=== PATIENT | female | born 1995 | race Caucasian/White ===

== ENCOUNTER → 2017-12-23 16:39 | Outpatient (CLI) | payer OTHER, SELFPAY ==
[2017-12-23 18:59] LABS: Chlamydia Trachomatis by PCR Negative (Negative); Neisserai gonorrhoeae by PCR Negative (Negative); Probe Check PASS; Sample Adequacy Control PASS; Specimen Processing Control PASS
[2017-12-26 15:50] LABS: HPV Reflexed? NOT INDICATED
== END ==
PROVIDERS: Family Provider Family Medicine; PCP Family Medicine; Referring Provider Nurse Practitioner Women's Health; Visit Provider Nurse Practitioner Women's Health
DX: Z12.4 Encounter for screening for malignant neoplasm of cervix (principal); A64 Unspecified sexually transmitted disease
CPT/HCPCS: 87491; 87591; 88175; G0145

== ENCOUNTER → 2018-02-09 12:18 | Outpatient (CLI) | payer OTHER, SELFPAY ==
--- NOTE | 2018-02-09 12:20 | US_ITS ---
STUDY: THYROID ULTRASOUND REASON FOR EXAM: Female, 22 years old. Palpable lump right neck. History of thyroidectomy 2007. TECHNIQUE: Ultrasound evaluation of the thyroid was performed with real-time and static lowe-scale imaging. COMPARISON: None. FINDINGS: RIGHT LOBE: The right lobe of the thyroid gland is surgically absent LEFT LOBE: The left lobe of the thyroid gland measures 3.9 x 1.4 x 1.3 cm. There is a homogeneous echotexture. An incompletely defined, heterogeneous 1.1 x 0.9 x 0.9 cm solid nodule is seen in the mid lobe. An exophytic 4 x 3 x 2 mm nearly isoechoic nodule is noted in the anterior mid to lower lobe. ISTHMUS: The isthmus measures 2 mm. At the area of the palpable abnormality, there is a well-defined 2.25 x 1.1 x 2.3 cm hypoechoic structure that likely represents a lymph node. A similar appearing 2.5 x 3.1 x 0.9 cm hypoechoic structure consistent with a lymph node seen superior to the left lobe, as is a mildly heterogeneous 9 x 7 x 6 mm nodule. US/Head/Neck Soft Tissue IMPRESSION: 1. Prior right thyroidectomy. The palpable abnormality correlates to a 2.3 cm lymph node in the right neck. 2. Two left thyroid nodules are present, the larger measuring 1.1 cm. Correlation with any previous outside studies would be useful. If none are available, this may be amenable to ultrasound-guided needle biopsy. 3. Two lymph nodes are also seen in the left neck superior to the thyroid. The larger is 3.1 cm in greatest diameter. Electronically Signed: Nilo Zamora MD at 15:51 EST , Service support ,
[2018-02-09 16:04] LABS: Absolute Lymphocyte Count 3.43 X10^3/ul (0.83-4.51); Absolute Neutrophil Count 6.2 X10^3/uL (2.0-7.7); Basophil# 0.01 X10^3/uL; Basophil% 0.1 % (0-1); Eosinophil# 0.22 X10^3/uL; Eosinophils% 2.1 % (0-5); Hematocrit 41.9 % (37-47); Hemoglobin 13.5 g/dl (12.0-15.0); Lymphocyte # 3.43 X10^3/ul (4.0); Lymphocyte % 33.1 % (19-41); Mean Corp Hgb Conc 32.2 g/gl (32-36); Mean Corpuscular Hgb 28.1 pg (27.0-32.0); Mean Corpuscular Volume 87.1 fL (81-99); Monocyte# 0.51 X10^3/uL; Monocyte% 4.9 % (0-10); Neutrophil # 6.16 X10^3/uL (2.7-7.7); Neutrophil % 59.6 % (47-70); Platelet Count 282 K/mm3 (150-450); RBC Distribution Width CV 13.4 % (11.6-14.6); RBC Distribution Width SD 42.6 fl (35.1-43.9); Red Blood Count 4.81 M/mm3 (4.2-5.4); White Blood Count 10.4 K/mm3 (4.4-11.0)
[2018-02-09 16:08] LABS: POSITIVE COUNT NO; POSITIVE DIFFERENTIAL NO; POSITIVE MORPHOLOGY NO
[2018-02-12 08:42] LABS: EBV Acute VCA IgM < 36.0 U/mL (0.0-35.9); EBV Nuclear Antigen IgG 45.6 U/mL (0.0-17.9); EBV-VCA IgG > 600.0 U/mL (0.0-17.9)
--- OUTSIDE RECORDS SUMMARY | 2018-04-04 18:38 | XMS RPT_ITS ---
:1995 Author Organization OHIP Care Team Providers Name Role Phone Erica Tucker Attending Unavailable Malys, Erica Primary Care Unavailable Laura, Cheryl Attending Unavailable Malys, Erica Referring Unavailable Houston, Cheryl Attending Unavailable Laura, Cheryl Referring Unavailable Malys, Erica Primary Care Unavailable Malys, Erica Attending Unavailable Malys, Erica Primary Care Unavailable Oscar, Bradley Attending Unavailable Oscar, Bradlye Referring Unavailable Malys, Erica Primary Care Unavailable Oscar, Bradley Attending Unavailable Malys, Erica Primary Care Unavailable Oscar, Bradley Attending Unavailable Oscra, Bradley Referring Unavailable Malys, Erica Primary Care Unavailable PROBLEMS PROBLEMS DATE TYPE CONDITION / CODE ATTENDING STATUS SOURCE 02/23/2018 Unknown R59.0 - Localized Oscar, Bradley Active [place] enlarged lymph Community nodes / Hospital R59.0(ICD-10) Repository 02/09/2018 Unknown R22.1 - Localized Oscar, Bradley Active [place] swelling, mass Community and lump, neck / Hospital R22.1(ICD-10) Repository 12/23/2017 Unknown Z12.4 - Encounter Laura, Cheryl Active [place] for screening for [facility] malignant Hospital neoplasm of Repository cervix / Z12.4(ICD-10) 12/23/2017 Unknown A64 - Unspecified Laura, Cheryl Active [place] sexually [facility] transmitted Hospital disease / Repository A64(ICD-10) 06/03/2017 Unknown N93.9 - Abnormal Malys, Erica Active [place] uterine and Community vaginal bleeding, Hospital unspecified / Repository N93.9(ICD-10) 06/03/2017 Unknown E03.9 - Malys, Erica Active [place] Hypothyroidism, Community unspecified / Hospital E03.9(ICD-10) Repository PROCEDURES PROCEDURES No Procedure Records FoundRESULTS RESULTS OPERATIVE REPORT Observed: 02/20/2018 Status: F Source: [place] 3:23 PM [facility] REPOSITORY [facility] Medical Records Department [address] [address] Operative Report 02/20/18 1321 MR#: [id number] Acct: [id number] Name: JOE OSBORNE Rep #: [id number] : 1995 22 From: Bradley Oscar MD PCP: Erica Tucker DO Status: REG SDC Y Location: [place] [id number] Problem List (1) Localized enlarged lymph nodes Status: Chronic Report of Operation Date of Procedure: 02/20/18 Pre-Operative Diagnosis: Cervical lymphadenopathy Post-Operative Diagnosis: same Surgery/Procedure Performed:: Deep cervical lymph node biopsy, right neck Description of Surgical Findings:: Brittany is a 22-year-old female since valuation of persistent tender cervical lymphadenopathy this is predominantly on the right side, and ultrasound did show 3 cm lymph node on that side as well as some contralateral enlarged lymph nodes. She reports a distant history of thyroidectomy for a cystic lesion but history is otherwise not suggestive of significant illness or malignancy. She reports that the lymphadenopathy had been bothersome episodically over the last 6 years and given the significant palpable enlargement, tenderness, and pathologic size open biopsy for definitive evaluation was offered but she was eager to proceed. The risks, alternatives, potential benefits, and complications were discussed at length and any questions answered to the patient and/or caregiver's satisfaction. Witnessed informed consent was obtained in the office, and the patient and/or caregiver was agreeable to proceed. Procedure went as follows: The patient was identified in the preoperative holding brought to the operating room she was placed under general anesthesia intubated. When appropriate anesthesia was obtained, the left neck was then injected with 1% lidocaine with 100,000 epinephrine for a total of 2 cc of the planned incision site and prepped and draped in usual sterile fashion. After lying for vasoconstriction, a 15 blade scalpel was then used to incise the skin subcutaneous tissues and platysma. Dissection was then carried out over the sternocleidomastoid muscle anteriorly where the jugulodigastric node was identified. This was firm and bulky approximately 2 x 3 x 1.5 cm in size. This was then dissected free from its capsule and the vascular pedicle clamped and ligated with a 3-0 silk suture. This was then sent fresh for pathologic specimen. The wound was then irrigated with saline solution and no significant bleeding was encountered. Using interrupted 3- 0 Vicryl sutures the deep tissues were then reapproximated to close the space followed by reapproximation of the platysma and subcutaneous tissues. A 5-0 Monocryl was used to close the skin running subcuticular stitch followed by Cavilon and Steri-Strips. This completed the procedure and the patient was returned to anesthesia where she was vital to next made without comp occasion having tolerated the procedure well. Type of Anesthesia:: General - 99 Anesthesiologist: Adolfo Berg Special Medications: none Specimen's removed: Right deep cervical lymph node Drains: none Estimated Blood Loss (mL): 5 mL Fluids Replaced: 800 mL Grafts/Implants Used: none - Complications none - Admit VTE Documentation VTE Present on Admission: No VTE Mechan Device Prophylaxis: SCD's VTE Pharm Prophylaxis ordered?: No 02/20/181326 <Electronically signed by Bradley Oscar MD> Date Bradley Oscar MD CC: Bradley Oscar MD; Erica Tucker DO Signed DISCHARGE INSTRUCTION Observed: 02/20/2018 Status: F Source: [place] 1:28 PM [facility] [place] [place] REPOSITORY [facility] Medical Records Department [address] [place] [address] Instructions for Home/Discharge Instructions 02/20/181326 MR#: [id number] Acct: [id number] Name: JOE OSBORNE Bello Rep #: [id number] : 1995 22 From: Bradley Oscar MD PCP: Erica Tucker DO Status: REG SDC - Discharge Diagnoses Current Active Problems: Current Active and Chronic Problems (Last Reviewed 12/23/17 @ 14:19 by Lora Leo) Localized enlarged lymph nodes (Chronic) You will use the following diet at home:: Regular Your food should be the consistency of: Regular Discharge Activity: Return to Normal Activity, May not drive while taking narcotic pain medications. Call your doctor if your incision/area has: Continuous Slow Oozing, Increased Pain/ Swelling, Increased Redness, Foul Smelling Discharge Call your doctor if you observe: Fever of 101 or Higher, Uncontrolled pain Allergies/Adverse Reactions: Allergies No Known Allergies Allergy (Verified 02/19/18 09:38) Medications to take at Discharge duloxetine 60 mg capsule,delayed release See Rx Instructions PO DAILY 12/23/17 levonorgestrel 0.15 mg-ethinyl estradiol 0.03 mg tablet 1 tab PO DAILY #84 tab 12/23/17 Levothyroxine [Synthroid] 88 mcg PO DAILY 12/13/18 Primary Care Physician: Erica Tucker DO [Primary Care Provider] - Test Results: Test results from this visit will be discussed in further detail at your follow-up appointment, if applicable. Please Follow Up With: Bradley Oscar MD When: 2 weeks 02/20/18 1328 <Electronically signed by Bradley Oscar MD> Date Bradley Oscar MD CC: Erica Tucker DO ,URINE Collected: 02/20/2018 Status: F Source: [place] 11:39 AM [facility] [place] [place] REPOSITORY Order Comment: Reason for Laboratory Test PRE-OP TYPE CODE TESTS RESULT OUT OF REFERENCE UNITS RANGE LAB L400.8000 Negative Normal HCGUQUAL Negative Result Comment: Very dilute urine specimens, as indicated by a low specific gravity, may not contain customer service representative levels of hCG. If is still suspected, a first morning urine specimen should be collected 48 hours later and tested. Performed By: #### L400.7600 #### [facility] [address] [place], [address] LYMPH NODE BIOPSY Observed: 02/20/2018 Status: F Source: [place] 12:00 AM [facility] [place] [place] REPOSITORY Patient: JOE OSBORNE : 1995 () Acct Num: [id number] Phys: Bradley Oscar MD Unit Num: [id number] Loc: [facility] Specimen: [id number] Received: 02/20/18 - 1435 Spec Type: LYMPH NODE TISSUES 1 TISSUES: LYMPH NODE BIOPSY COMMENT The specimen is evaluated at the time of touch imprints by Dr. Glass. Immediate Evaluation = Numerous lymphocytes are noted, mixture of large and small lymphocytes including a few giant cells. Case has been reviewed in consultation with Dr. Quintana who concurs with the above diagnosis. IDC:AM GROSS DESCRIPTION Received fresh in saline labeled with the patient's name is a specimen designated right cervical lymph node. The specimen consists of an ovoid piece of amaro soft tissue consistent with lymph node measuring 2.5 x 1.5 x 1.5 cm. The specimen is sectioned and a section is submitted for flow cytometry study. Four touch imprints are prepared, two stained with Diff-Quik and two stained with H AND E stain. The entire specimen is submitted in two cassettes. / ANSLEY:nava 02/20/18 TC: CPT: 20417 HEADER OPERATION: Excisional biopsy, lymph node, open, deep cervical nodes PRE-OP DIAGNOSIS: Cervical lymphadenopathy TISSUE SUBMITTED: Right cervical lymph node sent fresh in saline MICROSCOPIC DESCRIPTION Slides are reviewed. MICROSCOPIC DIAGNOSIS Right cervical lymph node, excisional biopsy: Lymph node tissue with reactive lymphoid hyperplasia. Negative for malignancy. Flow cytometry study from [facility] shows no phenotypic evidence of non-Hodgkin lymphoma. The complete report is viewable in patient's EMR. ANSLEY:nava 02/24/18 Signed James Glass MD 02/24/18 <signature on file> Performed By: #### PLYMN #### [facility] [place], [address] CBC W/DIFF, AUTOMATED Collected: 02/09/2018 Status: F Source: [place] 1:13 PM [facility] [place] [place] REPOSITORY TYPE CODE TESTS RESULT OUT OF RANGE REFERENCE UNITS LAB L100.1000 4.4-11.0 K/mm3 Normal WBC 10.4 LAB L100.1200 4.2-5.4 M/mm3 Normal RBC 4.81 LAB L100.1300 12.0-15.0 g/dl Normal HGB 13.5 LAB L100.1400 37-47 % Normal HCT 41.9 LAB L100.1500 81-99 fL Normal MCV 87.1 LAB L100.1600 27.0-32.0 pg Normal MCH 28.1 LAB L100.1700 32-36 g/gl Normal MCHC 32.2 LAB L100.1810 11.6-14.6 % Normal RDW CV 13.4 LAB L100.1820 35.1-43.9 fl Normal RDW SD 42.6 LAB L100.1900 150-450 K/mm3 Normal PLT 282 LAB L100.2000 6.2-12.0 fl Normal MPV 10.0 LAB L100.2100 47-70 % Normal NEUT% 59.6 LAB L100.2200 19-41 % Normal LY% 33.1 LAB L100.2300 0-10 % Normal MONO% 4.9 LAB L100.2400 0-5 % Normal EO% 2.1 LAB L100.2500 0-1 % Normal BASO% 0.1 LAB L100.2550 0.0-0.9 % Normal IM GRAN % 0.200 Result Comment: IG% - Immature Granulocytes (promyelocytes, myelocytes and metamyelocytes) > 1% indicates that a LEFT SHIFT is Present. LAB L100.2620 2.0-7.7 X10 3/uL Normal Absolute Neut 6.2 LAB L100.2720 0.83-4.51 X10 3/ul Normal Absolute Lymph 3.43 Performed By: #### L100.0100 #### [facility] [address] [place], [address] EBV ACUTE PROF IGG Collected: 02/09/2018 Status: F Source: [place] / IGM 1:13 PM [facility] [place] [place] REPOSITORY TYPE CODE TESTS RESULT OUT OF RANGE REFERENCE UNITS LAB L3100.5900 0.0-35.9 U/mL Normal EB-VCA < 36.0 [id number] Result Comment: Negative <36.0 Equivocal 36.0 - 43.9 Positive >43.9 LAB L3100.6000 0.0-8.9 U/mL High EB-EA IgG 126.0 52869 Result Comment: Hepatitis A, Hepatitis C and HIV antibodies may cross-react with this assay. Negative < 9.0 Equivocal 9.0 - 10.9 Positive >10.9 LAB L3100.6100 0.0-17.9 U/mL High EB-VCA > [id number] 600.0 Result Comment: Negative <18.0 Equivocal 18.0 - 21.9 Positive >21.9 LAB L3100.6200 0.0-17.9 U/mL High EB-NAg [id number] 45.6 Result Comment: Negative <18.0 Equivocal 18.0 - 21.9 Positive >21.9 LAB L3100.6300 . INTERPRETATION Normal Comment Result Comment: EBV Interpretation Chart Interpretation EBV-IgM EA(D)-IgG VCA-IgG EBNA-IgG EBV Seronegative - - - - Early Phase + - - - Acute Primary + +or- + - Infection Convalescence/Past - +or- + + Infection Reactivated +or- + + + Infection + Antibody Present - Antibody Absent Performed at: - [facility] [address] [id number] Soils Engineer: Shane Barcenas PhD, Phone: [phone] Performed By: #### L3100.5850 #### [facility] (refer to report for specific site) refer to report for address and phone number HEAD/NECK SOFT TISSUE Observed: 02/09/2018 Status: F Source: [place] 12:20 PM [facility] [place] [place] REPOSITORY [facility] Imaging Services [address] [place] [address] Head/Neck Soft Tissue MR#: [id number] Acct: [id number] Name: JOE OSBORNE Rep #: [id number] : 1995 F 22 From: Usman Zamora MD PCP: Erica Tucker DO Status: REG CLI Study: Head/Neck Soft Tissue Date of Exam: 02/09/18 Exam# [id number] Ordering Dr: Bradley Oscar MD STUDY: THYROID ULTRASOUND REASON FOR EXAM: Female, 22 years old. Palpable lump right neck. History of thyroidectomy 2007. TECHNIQUE: Ultrasound evaluation of the thyroid was performed with real-time and static lowe-scale imaging. COMPARISON: None. FINDINGS: RIGHT LOBE: The right lobe of the thyroid gland is surgically absent LEFT LOBE: The left lobe of the thyroid gland measures 3.9 x 1.4 x 1.3 cm. There is a homogeneous echotexture. An incompletely defined, heterogeneous 1.1 x 0.9 x 0.9 cm solid nodule is seen in the mid lobe. An exophytic 4 x 3 x 2 mm nearly isoechoic nodule is noted in the anterior mid to lower lobe. ISTHMUS: The isthmus measures 2 mm. At the area of the palpable abnormality, there is a well-defined 2.25 x 1.1 x 2.3 cm hypoechoic structure that likely represents a lymph node. A similar appearing 2.5 x 3.1 x 0.9 cm hypoechoic structure consistent with a lymph node seen superior to the left lobe, as is a mildly heterogeneous 9 x 7 x 6 mm nodule. US/Head/Neck Soft Tissue IMPRESSION: 1. Prior right thyroidectomy. The palpable abnormality correlates to a 2.3 cm lymph node in the right neck. 2. Two left thyroid nodules are present, the larger measuring 1.1 cm. Correlation with any previous outside studies would be useful. If none are available, this may be amenable to ultrasound-guided needle biopsy. 3. Two lymph nodes are also seen in the left neck superior to the thyroid. The larger is 3.1 cm in greatest diameter. Electronically Signed: Nilo Zamora MD at 15:51 EST , Service support , CC: Bradley Oscar MD; Erica Tucker DO Database Architect: Signed CT/NG [facility] BY PCR Collected: 12/23/2017 Status: F Source: [place] 4:52 PM [facility] [place] [place] REPOSITORY TYPE CODE TESTS RESULT OUT OF RANGE REFERENCE UNITS LAB L8200.2100 Negative Normal Chlam Negative Trac PCR LAB L8200.2200 Negative Normal NG by Negative PCR Performed By: #### L8200.2000 #### [facility] [address] [place], [address] MANUFACTURING SUPPORT ENGINEER OFFICE VISIT Observed: 12/23/2017 Status: F Source: [place] REPORT 3:12 PM [facility] [place] [place] REPOSITORY [facility] 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 states she has been having stabbing pain in her abdomen above her belly button periodically. She doesn't recall anything specific that triggers the pain. 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 OCPs from PCP. States she notices more depression when on active pills. Last PAP: none Same sexual partner X 4 years. Agrees to GCC test, declines serum STD testing. Female Reproductive History Last Menstral Period: 12/04/17 Cycle Length: 21-35 Control Method: OCP Questions: Metorrhagia: No, Sexually active: Yes, Dyspareunia: No, PCB: No ROS Const Constitutional: Denies fatigue, weight gain or weight loss Cardio Card: Denies chest pain Resp Resp: Denies cough or shortness of breath with activity GI GI: Denies abdominal pain, constipation, change in stools, vomiting or bloating : Reports as per HPI; denies urinary frequency, pelvic pain, urinary urgency, vaginal discharge, vaginal itching, urinary incontinence or difficulty urinating Exam Const General: cooperative, healthy appearing, no acute distress, well developed Orientation: alert, oriented to person, oriented to place [facility] Head: normal to inspection Neck Neck: normal visual inspection Thyroid: thyroid normal Lymphatic: no lymphadenopathy noted Chest Breast inspection: normal inspection of the breasts, normal inspection of the axillae Breast palpation: normal palpation of the breasts, normal palpation of the axillae, no axillary lymphadenopathy Resp Effort AND Inspection: normal respiratory effort GI Palpation: soft, nontender, no masses Rectal Exam: deferred External Female Exam: normal external appearance, normal appearance of the urethra Urethra: normal appearance of the urethra, normal palpation Speculum Exam - Vagina: normal appearance of the vagina, normal vaginal discharge Speculum Exam - Cervix: cervix absent Bimanual Exam- Vagina AND Uterus: normal bimanual exam, uterus absent Bimanual Exam- Adnexa, other: normal adnexae, no adnexal masses, adnexae non-tender, pelvic support normal Pelvic Support: normal Neuro General: alert, oriented x3 Psych Affect: normal affect Assessment AND Plan Problems 1. Encounter for gynecological examination without abnormal finding Z01.419 2. Oral contraceptive pill surveillance Z30.41 3. Pap smear for cervical cancer screening Z12.4 4. Screen for STD (sexually transmitted disease) Z11.3 Plan Completed breast and pelvic exam Reviewed diet and exercise Pap thin prep pap with reflex HPV Contraception Rx for change to levora next cycle. 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 SERVICER Orders Orders: Medications New: Discontinued: desogestrel-ethinyl estradiol 0.15-0.03 mg (Enskyce) Discontinued Reaso1 tab PO DAILY n: Order Changed Coding Level of Care Code Off vis,new,prev 18-39yrs Diagnoses Encounter for gynecological examination without abnormal finding Z01.419 Gynecological examination findings: abnormal findings ABSENT Oral contraceptive pill surveillance Z30.41 Pap smear for cervical cancer screening Z12.4 Screen for STD (sexually transmitted disease) Z11.3 12/23/17 1512 <Electronically signed by Cheryl Sanchez CUSTOMER SUPPORT MANAGER-C> Date Cheryl Sanchez CUSTOMER SUPPORT MANAGER-C Cosigner Signature: Date (if applicable) CC: PAP I-G W/RFX Collected: 12/23/2017 Status: F Source: [place] HRHPV-APTIMA 3:00 PM [facility] [place] [place] REPOSITORY Order Comment: CYTOLOGY INFORMATION: - CLINICAL INFORMATION: - DATE LMP/MENOPAUSE: - COLLECTION VIAL: Thin Prep Vial - ARCHITECTURE INTERNSHIP SOURCE: CERVICAL - COLLECTION TECHNIQUE: BRUSH/SPATULA Specimen Comment: [id number] Specimen Comment: Source.............Cervix Specimen Comment: No. of containers..01 ThinPrep Vial TYPE CODE TESTS RESULT OUT OF RANGE REFERENCE UNITS LAB L7400.0800 . Normal DIAGN Comment Result Comment: NEGATIVE FOR INTRAEPITHELIAL LESION AND MALIGNANCY. LAB L7400.0900 . Normal ADEQ Comment Result Comment: Satisfactory for evaluation. Endocervical and/or squamous metaplastic cells (endocervical component) are present. LAB L7400.1400 . Normal PERFORM Comment Result Comment: Amber Vargas, Conductor Sleeping Car (ASCP) LAB L7400.2575 . Normal TEST METHOD Comment Result Comment: This liquid based ThinPrep(R) pap test was screened with the use of an image guided system. LAB L7400.2600 . Normal . COMM LAB L7400.2700 . Normal PAPSMR Comment Result Comment: The Pap smear is a screening test designed to aid in the detection of premalignant and malignant conditions of the uterine cervix. It is not a diagnostic procedure and should not be used as the sole means of detecting cervical cancer. Both false-positive and false-negative reports do occur. LAB L7400.2800 . Normal HPV RFLX Comment Result Comment: The HPV DNA reflex criteria were not met with this specimen result therefore, no HPV testing was performed. Performed at: [address] [place] [id number] Soils Engineer: Judy Lagos MD, Phone: [phone] Performed By: #### L7400.0353 #### [facility] (refer to report for specific site) refer to report for address and phone number ALLERGIES ALLERGIES DATE TYPE / CODE NAME / CODE REACTION SEVERITY SOURCE 02/19/2018 Drug No Known Unknown [place] [facility] Allergy/4160 Allergies/F00 [facility] [address](SNOMED [id number](RXNOR Repository CT) M) ENCOUNTERS ENCOUNTERS ADMIT/DISCHARGE ACCOUNT ADMITTING ENCOUNTER LOCATION SOURCE NUMBER CLASS 02/20/2018/ [id number] Ambulatory [place] 8 4 [facility] ing:SDCRoom: Repository AC04 02/11/2018 [id number] Ambulatory [place] 8 [facility] ing:LAB.FUTUR Repository E 02/09/2018 [id number] Ambulatory [place] 5 [facility] ing:[place] Repository 01/26/2018 [id number] Ambulatory [place] 7 [facility] ing:LAB.FUTUR Repository E 12/23/2017 [id number] Ambulatory [place] 7 [facility] ing:LABSPEC Repository 12/23/2017/ [id number] Ambulatory BMSBuilding:B [place] 8 3 [place] Repository 06/02/2017 [id number] Ambulatory [place] 7 [facility] ing:LAB.FUTUR Repository E PAYERS PAYERS ENCOUNTER GUARANTOR PAYER SUBSCRIBER SOURCE 02/20/2018 JOE A Primary JOE A [place] [id number] Insurance:MEDICAL DYLONDOB: Community [address] [facility] [id number] Number: Repository [address]Ntr: ([phone] [id number] [phone] () Date:2018-02-11[address] [place] [phone]: 02/20/2018 Secondary NOT GIVENUNK [place] Insurance:SELF PAY [facility] Number: Effective Repository Date:2018-02-11 02/11/2018 JOE A Primary JOE A [place] [id number] Insurance:MEDICAL DYLONDOB: [facility] [id number] Number: Repository [address]Dnx: 330 [id number] [phone] (HP) Date:2018-02-11[address] [place] [phone]: 02/11/2018 Secondary NOT GIVENUNK [place] Insurance:SELF PAY [facility] Number: Effective Repository Date:2018-02-11 02/09/2018 JOE A Primary JOE A [place] [id number] Insurance:MEDICAL SCOTTDOB: [facility] [id number] Number: Repository [id number]: 330 [id number] [phone] (HP) Date:2018-01-20[address] [place] [phone]: 02/09/2018 Secondary NOT GIVENUNK [place] Insurance:SELF PAY [facility] Hospital Number: Effective Repository Date:2018-01-20 01/26/2018 JOE A Primary JOE A [place] [id number] Insurance:MEDICAL SCOTTDOB: [facility] [id number] Number: Repository [address]Hmu: 330 [id number] [phone] (HP) Date:2018-01-26[address] [place] [phone]: 01/26/2018 Secondary NOT GIVENUNK [place] Insurance:SELF PAY [facility] Number: Effective Repository Date:2018-01-26 12/23/2017 JOE A Primary JOE A [place] [id number] Insurance:MEDICAL SCOTTDOB: [facility] [id number] Number: Repository [address]Gwz: 330 [id number] [phone] (HP) Date:2017-12-23[address] [place] [phone]: 12/23/2017 Secondary NOT GIVENUNK [place] Insurance:SELF PAY [facility] Number: Effective Repository Date:2017-12-23 12/23/2017 JOE Monsalve Primary JOE Monsalve [place] [id number] Insurance:MEDICAL SCOTTDOB: [facility] [id number] Number: Repository [id number]: 330 [id number] [phone] () Date:2017-12-15[address] [place] [phone]: 12/23/2017 Secondary NOT GIVENUNK [place] Insurance:SELF PAY [facility] Number: Effective Repository Date:2017-12-23 06/02/2017 JOE Monsalve Primary JOE Monsalve [place] [id number] Insurance:MEDICAL SCOTTDOB: [facility] [id number] Number: Repository [id number]: 330 [id number] [phone] () Date:2017-06-02[address] [place] [phone]: 06/02/2017 Secondary NOT GIVENUNK [place] Insurance:SELF PAY [facility] Number: Effective Repository Date:2017-06-02
== END ==
PROVIDERS: Family Provider Family Medicine; PCP Family Medicine; Referring Provider Otolaryngology; Visit Provider Otolaryngology
DX: R22.1 Localized swelling, mass and lump, neck (principal); J02.9 Acute pharyngitis, unspecified
CPT/HCPCS: 36415; 76536; 85025; 86663; 86664; 86665

== ENCOUNTER 2018-02-20 11:27 | Day surgery (SDC) | payer OTHER, SELFPAY ==
--- NOTE | 2018-02-20 | LYMN_PTH ---
PATIENT: JOE OSBORNE LOC: [facility] [place] U#:[id number] AGE/SX: 22/F ROOM: RE02/20/[address]: Dr. Bradley Oscar MD : 1995 BED: DIS: 02/20/2018 SPEC #: [id number] RECD: 02/20/18 14:35 STATUS: SCARLETT JACKY #: [id number] JOSELINE: 02/20/18 00:[address]: Bradley Oscar DEPT: SURGICAL PATHOLOGY RECD BY: Aditya Almodovar ENTERED: 02/20/18 14:36 SP TYPE: LYMPH NODE OTHR DR: Dr. Erica Tucker, DO Tissues: LYMPH NODE BIOPSY Procedures: Surgery Specimen Level IV HEADER OPERATION: Excisional biopsy, lymph node, open, deep cervical nodes PRE-OP DIAGNOSIS: Cervical lymphadenopathy TISSUE SUBMITTED: Right cervical lymph node sent fresh in saline MICROSCOPIC DIAGNOSIS Right cervical lymph node, excisional biopsy: Lymph node tissue with reactive lymphoid hyperplasia. Negative for malignancy. Flow cytometry study from [facility] shows no phenotypic evidence of non-Hodgkin lymphoma. The complete report is viewable in patient's EMR. ANSLEY:nava 02/24/18 COMMENT The specimen is evaluated at the time of touch imprints by Dr. Glass. Immediate Evaluation = Numerous lymphocytes are noted, mixture of large and small lymphocytes including a few giant cells. Case has been reviewed in consultation with Dr. Quintana who concurs with the above diagnosis. IDC:AM MICROSCOPIC DESCRIPTION Slides are reviewed. GROSS DESCRIPTION Received fresh in saline labeled with the patient's name is a specimen designated right cervical lymph node. The specimen consists of an ovoid piece of amaro soft tissue consistent with lymph node measuring 2.5 x 1.5 x 1.5 cm. The specimen is sectioned and a section is submitted for flow cytometry study. Four touch imprints are prepared, two stained with Diff-Quik and two stained with H & E stain. The entire specimen is submitted in two cassettes. / ANSLEY:nava 02/20/18 TC: CPT: 57811
[2018-02-20 11:47] LABS: Internal QC Validated? YES +Cl - CLEAR BKGD; Pregnancy, Urine Negative Negative
[2018-02-20 11:56] VITALS: BP 145/93; PULSE 91; RESP 16; TEMP 36.6; O2SAT 96; BMI 38.9
--- NOTE | 2018-02-20 13:21 | PCM.OPRPT ---
Problem List (1) Localized enlarged lymph nodes Status: Chronic Report of Operation Date of Procedure: 02/20/18 Pre-Operative Diagnosis: Cervical lymphadenopathy Post-Operative Diagnosis: same Surgery/Procedure Performed:: Deep cervical lymph node biopsy, right neck Description of Surgical Findings:: Brittany is a 22-year-old female since valuation of persistent tender cervical lymphadenopathy this is predominantly on the right side, and ultrasound did show 3 cm lymph node on that side as well as some contralateral enlarged lymph nodes. She reports a distant history of thyroidectomy for a cystic lesion but history is otherwise not suggestive of significant illness or malignancy. She reports that the lymphadenopathy had been bothersome episodically over the last 6 years and given the significant palpable enlargement, tenderness, and pathologic size open biopsy for definitive evaluation was offered but she was eager to proceed. The risks, alternatives, potential benefits, and complications were discussed at length and any questions answered to the patient and/or caregiver's satisfaction. Witnessed informed consent was obtained in the office, and the patient and/or caregiver was agreeable to proceed. Procedure went as follows: The patient was identified in the preoperative holding brought to the operating room she was placed under general anesthesia intubated. When appropriate anesthesia was obtained, the left neck was then injected with 1% lidocaine with 100,000 epinephrine for a total of 2 cc of the planned incision site and prepped and draped in usual sterile fashion. After lying for vasoconstriction, a 15 blade scalpel was then used to incise the skin subcutaneous tissues and platysma. Dissection was then carried out over the sternocleidomastoid muscle anteriorly where the jugulodigastric node was identified. This was firm and bulky approximately 2 x 3 x 1.5 cm in size. This was then dissected free from its capsule and the vascular pedicle clamped and ligated with a 3-0 silk suture. This was then sent fresh for pathologic specimen. The wound was then irrigated with saline solution and no significant bleeding was encountered. Using interrupted 3-0 Vicryl sutures the deep tissues were then reapproximated to close the space followed by reapproximation of the platysma and subcutaneous tissues. A 5-0 Monocryl was used to close the skin running subcuticular stitch followed by Cavilon and Steri-Strips. This completed the procedure and the patient was returned to anesthesia where she was vital to next made without comp occasion having tolerated the procedure well. Type of Anesthesia:: General - 99 Anesthesiologist: Adolfo Berg Special Medications: none Specimen's removed: Right deep cervical lymph node Drains: none Estimated Blood Loss (mL): 5 mL Fluids Replaced: 800 mL Grafts/Implants Used: none - Complications none - Admit VTE Documentation VTE Present on Admission: No VTE Mechan Device Prophylaxis: SCD's VTE Pharm Prophylaxis ordered?: No
[2018-02-20 13:27] VITALS: BP 145/93; BP 155/103; PULSE 90; RESP 16; TEMP 36.3; O2SAT 95
--- NOTE | 2018-02-20 13:28 | DCINST_ITS ---
- Discharge Diagnoses Current Active Problems: Current Active and Chronic Problems (Last Reviewed 12/23/17 @ 14:19 by Lora Leo) Localized enlarged lymph nodes (Chronic) You will use the following diet at home:: Regular Your food should be the consistency of: Regular Discharge Activity: Return to Normal Activity, May not drive while taking narcotic pain medications. Call your doctor if your incision/area has: Continuous Slow Oozing, Increased Pain/ Swelling, Increased Redness, Foul Smelling Discharge Call your doctor if you observe: Fever of 101 or Higher, Uncontrolled pain Allergies/Adverse Reactions: Allergies No Known Allergies Allergy (Verified 02/19/18 09:38) Medications to take at Discharge duloxetine 60 mg capsule,delayed release See Rx Instructions PO DAILY 12/23/17 levonorgestrel 0.15 mg-ethinyl estradiol 0.03 mg tablet 1 tab PO DAILY #84 tab 12/23/17 Levothyroxine [Synthroid] 88 mcg PO DAILY 02/19/18 Primary Care Physician: Erica Tucker DO [Primary Care Provider] - Test Results: Test results from this visit will be discussed in further detail at your follow- up appointment, if applicable. Please Follow Up With: Bradley Oscar MD When: 2 weeks
[2018-02-20 13:30] VITALS: BP 145/93; BP 152/100; PULSE 84; RESP 16; O2SAT 97
[2018-02-20 13:45] VITALS: BP 145/93; BP 146/97; PULSE 76; RESP 16; O2SAT 96
[2018-02-20 14:00] VITALS: BP 137/67; BP 145/93; PULSE 83; RESP 16; TEMP 36.3; O2SAT 98
[2018-02-20] MEDS: Acetaminophen 325 MG Tablet 650 MG PO (14:53)
[2018-02-20] MEDS: Ibuprofen 400 MG Tablet PO (16:00)
[2018-02-20 17:13] VITALS: BP 134/64; BP 145/93; PULSE 80; RESP 16; TEMP 36.3; O2SAT 98
--- NOTE | 2018-02-20 17:33 | PCM.DC.SUM ---
Discharge Date and Diagnosis Date of Admission: 02/20/18 Date of Discharge: 02/20/18 - Primary Discharge Diagnosis enlarged cervical lymph node - Secondary Discharge Diagnosis Chronic Problems (Last Reviewed 12/23/17 @ 14:19 by Lora Leo) Localized enlarged lymph nodes (Chronic) Hospital Course and Treatment Summary of Care Provided: The patient is a 22 year old F [] Subjective: Patient reports severe right neck pain after lymph node biopsy. This had been present the week preoperatively as well but is now worsened. She reports that Tylenol and Ibuprofen are not helping and that Dilaudid given only made her sleepy. Her mother states that pain medications don't work for us. Objective: Well appearing female standing at bedside in her street clothes, no bleeding or swelling at right neck incision site. - Physical Exam Vital Signs Temp Pulse Resp BP Pulse Ox 97.4 F L 80 16 134/64 H 98 02/20/18 17:13 02/20/18 17:13 02/20/18 17:13 02/20/18 17:13 02/20/18 17:13 Oxygen Delivery Method Room Air Weight: 103.1 kg Body Mass Index (BMI) 38.9 Intake and Output for Last 24 Hours 02/18/18 02/19/18 02/20/18 23:59 23:59 23:59 Intake Total 1100 / 1100 Balance 1100 / 1100 Laboratory Tests Past 24 Hrs 02/20/18 11:39 Urine Test Negative Discharge Activity: Return to Normal Activity, May not drive while taking narcotic pain medications. Call your doctor if your incision/area has: Continuous Slow Oozing, Increased Pain/ Swelling, Increased Redness, Foul Smelling Discharge Call your doctor if you observe: Fever of 101 or Higher, Uncontrolled pain Home Medications: Medications to take at Discharge duloxetine 60 mg capsule,delayed release See Rx Instructions PO DAILY 12/23/17 levonorgestrel 0.15 mg-ethinyl estradiol 0.03 mg tablet 1 tab PO DAILY #84 tab 12/23/17 Levothyroxine [Synthroid] 88 mcg PO DAILY 02/19/18 Acetaminophen [Tylenol Tablet] 650 mg PO Q4H PRN PRN tablet 02/20/18 Hydrocodone Bitart/Apap 5-325 [Pinson 5/325] 2 tab PO Q6H PRN PRN 5 Days #30 tab 12/14/18 Ibuprofen [Motrin] 400 mg PO Q6 tablet 02/20/18 Following Prescrptions Were Given to Patient: Hydrocodone Bitart/Apap 5-325 [Pinson 5/325] 2 tab PO Q6H PRN PRN 5 Days #30 tab PRN Reason: Severe Pain (-12/17) Primary Care Physician: Erica Tucker DO [Primary Care Provider] - Please Follow Up With: Bradley Oscar MD When: 2 weeks Additional Instructions: Patient and family are met at bedside in recovery. I discussed with her and her mother that in my experience, most patients do well with minor surgery pain with a combination of Tylenol and Ibuprofen. Her mother stated that these medications do not work and it is ridiculous that they have been here and not had her pain addressed. I asked if they had been given Dilaudid as I was informed by nursing, and she reported that this only made her sleepy and relaxed. I explained that the three avenues of pain management are Tylenol, NSAIDS, and narcotics and that I would be happy to offer her some Pinson or Percocet here to see if this would help with her pain. At this, she said there is no (explicative) point and that she was leaving. Her mother became threatening and argumentative, but I again, reiterated that she is being offered some additional pain medication that she may continue by prescription in the hopes of better pain relief. I offered her mother a smile in hopes of a supportive gesture, to which I was admonished for laughing, to which I reassured her that I was only trying to help her daughter and address her pain as reported. They did agree to take Pinson here and left with a 5 day supply of pain control. Disposition: Home Medical Necessity - Tobacco Use Smoking Status: Never smoker Meaningful Use Info Meaningful Use Diagnoses (Choose all that apply): None applicable
[2018-02-20] MEDS: HYDROcodone Bitartrate/Apap 5/325 Tablet PO (17:40)
--- NOTE | 2018-02-20 17:41 | SUR.PHASEII ---
1453 PT HAS C/O PAIN TYLENOL GIVEN ORDERED, PT STATES, THIS WILL NOT WORK, BUT WILLING TO TAKE. 1550 PT UPSET AND CRYING, STATES SHE IS IN PAIN, MOTHER VERY ANGRY, STATES THIS IS NOT RIGHT. DR LATHAM CALLED, WAS TOLD TO GIVE THE IBUPROFEN. PT STATES, THIS WILL NOT WORK. GAVE SCHEDULE DOSE ORDERED. DILAUDID ORDERED IN PACU, PT ONLY RECEIVED 0.5MG IV , AN ADDITIONAL 2 DOSES GIVEN PER ANESTHESIA. 1715 PT STATES JUST GET ME OUT HERE, USING HARSH LANGUAGE. PT ENCOURAGED TO STAY TO SPEAK WITH DR LATHAM. 1720 DR HICKS SPOKE WITH FAMILY , MOTHER VERY INAPPROPRIATE WITH HER LANGUAGE. PT USING HARSH LANGUAGE , WANTING TO LEAVE. DR LATHAM OFFERED NORCO, PT AND PT'S MOTHER REFUSED. PT ENCOURAGED TO TRY NORCO , PT ACCEPTED. 2 TABS OF NORCO GIVEN, SEE MAR. PRESCRIPTION PROVIDED PER DR LATHAM. PT ESCORTED OUT BY THIS NURSE.
--- OUTSIDE RECORDS SUMMARY | 2018-04-08 04:50 | XMS RPT_ITS ---
:1995 Author Organization OHIP Care Team Providers Name Role Phone Erica Tucker Attending Unavailable Malys, Erica Primary Care Unavailable [place], Cheryl Attending Unavailable Malys, Erica Referring Unavailable [place], Cheryl Attending Unavailable Laura, Cheryl Referring Unavailable Malys, Erica Primary Care Unavailable Malys, Erica Attending Unavailable Malys, Erica Primary Care Unavailable Oscar, Bradley Attending Unavailable Oscar, Bradley Referring Unavailable Malys, Erica Primary Care Unavailable Oscar, Bradley Attending Unavailable Malys, Erica Primary Care Unavailable Oscar, Bradley Attending Unavailable Oscar, Bradley Referring Unavailable Malys, Erica Primary Care Unavailable PROBLEMS PROBLEMS DATE TYPE CONDITION / CODE ATTENDING STATUS SOURCE 02/23/2018 Unknown R59.0 - Localized Oscar, Bradley Active [place] enlarged lymph Community nodes / Hospital R59.0(ICD-10) Repository 02/09/2018 Unknown R22.1 - Localized Oscar, Bradley Active [place] swelling, mass Community and lump, neck / Hospital R22.1(ICD-10) Repository 12/23/2017 Unknown Z12.4 - Encounter Laura, Cheryl Active [place] for screening for [facility] malignant Hospital neoplasm of Repository cervix / Z12.4(ICD-10) 12/23/2017 Unknown A64 - Unspecified Laura, Cheryl Active [place] sexually [facility] transmitted Hospital disease / Repository A64(ICD-10) 06/03/2017 Unknown N93.9 - Abnormal Malys, Erica Active [place] uterine and Community vaginal bleeding, Hospital unspecified / Repository N93.9(ICD-10) 06/03/2017 Unknown E03.9 - Malys, Erica Active [place] Hypothyroidism, Community unspecified / Hospital E03.9(ICD-10) Repository PROCEDURES PROCEDURES No Procedure Records FoundRESULTS RESULTS DISCHARGE SUMMARY Observed: 02/27/2018 Status: F Source: [place] 12:02 PM [facility] REPOSITORY [facility] Medical Records Department [address] [place] [address] Discharge Summary 02/20/18 1733 MR#: [id number] Acct: [id number] Name: JOE OSBOR[place] Rep #: [id number] : 1995 22 From: Bradley Oscar MD PCP: Erica Tucker DO Status: [place] [facility] [place] [facility] [place] Discharge Date and Diagnosis Date of Admission: 02/20/18 Date of Discharge: 02/20/18 - Primary Discharge Diagnosis enlarged cervical lymph node - Secondary Discharge Diagnosis Chronic Problems (Last Reviewed 12/23/17 @ 14:19 by Lora Leo) Localized enlarged lymph nodes (Chronic) Hospital Course and Treatment Summary of Care Provided: The patient is a 22 year old F [] Subjective: Patient reports severe right neck pain after lymph node biopsy. This had been present the week preoperatively as well but is now worsened. She reports that Tylenol and Ibuprofen are not helping and that Dilaudid given only made her sleepy. Her mother states that pain medications don't work for us. Objective: Well appearing female standing at bedside in her street clothes, no bleeding or swelling at right neck incision site. - Physical Exam Vital Signs Temp Pulse Resp BP Pulse Ox 97.4 F L 80 16 134/64 H 98 02/20/18 17:13 02/20/18 17:13 02/20/18 17:13 02/20/18 17:13 02/20/18 17:13 Oxygen Delivery Method Room Air Weight: 103.1 kg Body Mass Index (BMI) 38.9 Intake and Output for Last 24 Hours Intake Total 1100 / 1100 Balance 1100 / 1100 Laboratory Tests Past 24 Hrs Urine Test Negative Discharge Activity: Return to Normal Activity, May not drive while taking narcotic pain medications. Call your doctor if your incision/area has: Continuous Slow Oozing, Increased Pain/ Swelling, Increased Redness, Foul Smelling Discharge Call your doctor if you observe: Fever of 101 or Higher, Uncontrolled pain Home Medications: Medications to take at Discharge duloxetine 60 mg capsule,delayed release See Rx Instructions PO DAILY 12/23/17 levonorgestrel 0.15 mg-ethinyl estradiol 0.03 mg tablet 1 tab PO DAILY #84 tab 12/23/17 Levothyroxine [Synthroid] 88 mcg PO DAILY 02/19/18 Acetaminophen [Tylenol Tablet] 650 mg PO Q4H PRN PRN tablet 02/20/18 Hydrocodone Bitart/Apap 5-325 [[place] 5/325] 2 tab PO Q6H PRN PRN 5 Days #30 tab 02/20/18 Ibuprofen [Motrin] 400 mg PO Q6 tablet 02/20/18 Following Prescrptions Were Given to Patient: Hydrocodone Bitart/Apap 5-325 [[place] 5/325] 2 tab PO Q6H PRN PRN 5 Days #30 tab PRN Reason: Severe Pain (-12/17) Primary Care Physician: Erica Tucker DO [Primary Care Provider] - Please Follow Up With: Bradley Oscar MD When: 2 weeks Additional Instructions: Patient and family are met at bedside in recovery. I discussed with her and her mother that in my experience, most patients do well with minor surgery pain with a combination of Tylenol and Ibuprofen. Her mother stated that these medications do not work and it is ridiculous that they have been here and not had her pain addressed. I asked if they had been given Dilaudid as I was informed by nursing, and she reported that this only made her sleepy and relaxed. I explained that the three avenues of pain management are Tylenol, NSAIDS, and narcotics and that I would be happy to offer her some [place] or Percocet here to see if this would help with her pain. At this, she said there is no (explicative) point and that she was leaving. Her mother became threatening and argumentative, but I again, reiterated that she is being offered some additional pain medication that she may continue by prescription in the hopes of better pain relief. I offered her mother a smile in hopes of a supportive gesture, to which I was admonished for laughing, to which I reassured her that I was only trying to help her daughter and address her pain as reported. They did agree to take Pra[place] here and left with a 5 day supply of pain control. Disposition: Home Medical Necessity - Tobacco Use Smoking Status: Never smoker Meaningful Use Info Meaningful Use Diagnoses (Choose all that apply): None applicable 02/20/18 586 <Electronically signed by Bradley Oscar MD> Date Bradley Oscar MD 02/27/18 1202<Electronically signed by Erica Tucker DO> Cosigner Signature (if applicable): Date Erica Tucker DO CC: Bradley Oscar MD; Erica Garrett BAIN Signed OPERATIVE REPORT Observed: 02/20/2018 Status: F Source: [place] 3:23 PM [facility] REPOSITORY [facility] Medical Records Department [address] [place] [address] Operative Report 02/20/18 1321 MR#: [id number] Acct: [id number] Name: JOE OSBORNE Rep #: [id number] : 1995 22 From: Bradley Oscar MD PCP: Erica Tucker DO Status: REG [facility] [place] [address] Problem List (1) Localized enlarged lymph nodes [...] Prophylaxis: SCD's VTE Pharm Prophylaxis ordered?: No 02/20/18 1327 <Electronically signed by Bradley Oscar MD> Date Bradley Oscar MD CC: Bradley Oscar MD; Erica Tucker DO Signed DISCHARGE INSTRUCTION Observed: 02/20/2018 Status: F Source: [place] 1:28 PM [facility] REPOSITORY [facility] Medical Records Department [address] [place] [address] Instructions for Home/Discharge Instructions 02/20/18 1327 MR#: [id number] Acct: [id number] Name: JOE OSBORNE Rep #: [id number] : 1995 22 From: Bradley Oscar MD [...] 12/23/17 Levothyroxine [Synthroid] 88 mcg PO DAILY 02/19/18 Primary Care Physician: Ercia Tucker DO [Primary Care Provider] - Test Results: Test results from this visit will be discussed in further detail at your follow-up appointment, if applicable. Please Follow Up With: Bradley Oscar MD When: 2 weeks 02/20/18 1328 <Electronically signed by Bradley Oscar MD> Date Bradley Oscar MD CC: Erica Tucker DO ,URINE Collected: 02/20/2018 Status: F Source: [place] 11:39 AM [facility] REPOSITORY Order Comment: Reason for Laboratory Test PRE-OP TYPE CODE TESTS RESULT OUT OF REFERENCE UNITS RANGE LAB L400.8000 Negative Normal HCGUQUAL Negative Result Comment: Very dilute urine specimens, as indicated by a low specific gravity, may not contain event representative levels of hCG. If is still suspected, a first morning urine specimen should be collected 48 hours later and tested. Performed By: #### L400.7600 #### [facility] [address] [place], [place], [address] LYMPH NODE BIOPSY Observed: 02/20/2018 Status: F Source: [place] 12:00 AM [facility] REPOSITORY Patient: JOE OSBORNE : 1995 (22/) Acct Num: [id number] Phys: Bradley Oscar MD Unit Num: [id number] [place] [facility] [place] Specimen: [id number] Received: 02/20/18 - 1435 Spec Type: LYMPH [...] specimen is submitted in two cassettes. / SJ:nava 02/20/18 TC: CPT: 58376 HEADER OPERATION: Excisional biopsy, lymph node, open, deep cervical nodes PRE-OP DIAGNOSIS: Cervical lymphadenopathy TISSUE SUBMITTED: Right cervical lymph node sent fresh in saline MICROSCOPIC DESCRIPTION Slides are reviewed. MICROSCOPIC DIAGNOSIS Right cervical lymph node, excisional biopsy: Lymph node tissue with reactive lymphoid hyperplasia. Negative for malignancy. Flow cytometry study from [facility] shows no phenotypic evidence of non-Hodgkin lymphoma. The complete report is viewable in patient's EMR. SJ:nava 02/24/18 Signed James Glass MD 02/24/18 <signature on file> Performed By: #### PLYMN #### [facility] [address] [place], [place], [id number] CBC W/DIFF, AUTOMATED Collected: 02/09/2018 Status: F Source: [place] 1:13 PM [facility] REPOSITORY TYPE CODE TESTS RESULT OUT OF [...] Lymph 3.43 Performed By: #### L100.0100 #### [facility] [address] [place] [address]. [place], [place], [address] EBV ACUTE PROF IGG Collected: 02/09/2018 Status: F Source: [place] / IGM 1:13 PM [facility] REPOSITORY TYPE CODE TESTS RESULT OUT OF RANGE REFERENCE UNITS LAB L3100.5900 0.0-35.9 U/mL Normal EB-VCA < 36.0 [id number] Result Comment: Negative <36.0 Equivocal 36.0 - 43.9 Positive >43.9 LAB L3100.6000 0.0-8.9 U/mL High EB-EA IgG 126.0 50496 Result Comment: Hepatitis A, Hepatitis C and HIV antibodies may cross-react with this assay. Negative < 9.0 Equivocal 9.0 - 10.9 Positive >10.9 LAB L3100.6100 0.0-17.9 U/mL High EB-VCA > [id number] 600.0 Result Comment: Negative <18.0 Equivocal 18.0 - 21.9 Positive >21.9 LAB L3100.6200 0.0-17.9 U/mL High EB-NAg [id number] 45.6 Result Comment: Negative <18.0 Equivocal 18.0 [...] - Antibody Absent Performed at: - [facility] [address] [id number] Equipment Records Supervisor: Shane Barcenas PhD, Phone: [phone] Performed By: #### L3100.5850 #### [facility] (refer to report for specific site) refer to report for address and phone number HEAD/NECK SOFT TISSUE Observed: 02/09/2018 Status: F Source: [place] 12:20 PM [facility] REPOSITORY [facility] Imaging Services [address] [place] [address] Head/Neck Soft Tissue MR#: [id number] Acct: [id number] Name: JOE OSBORNE Rep #: [id number] : 1995 F 22 From: Usman Zamora MD PCP: Erica Tucker DO Status: REG CLI Study: Head/Neck Soft Tissue Date of Exam: 02/09/18 Exam# [id number] Ordering Dr: Bradley Oscar MD STUDY: THYROID [...] CC: Bradley Oscar MD; Erica Tucker DO Road Machine Operator: Signed CT/NG [facility] BY PCR Collected: 12/23/2017 Status: F Source: [place] 4:52 PM [facility] REPOSITORY TYPE CODE TESTS RESULT OUT OF RANGE REFERENCE UNITS LAB L8200.2100 Negative Normal Chlam Negative Trac PCR LAB L8200.2200 Negative Normal NG by Negative PCR Performed By: #### L8200.2000 #### [facility] [address] 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 Pregancy History 0 Elective abortions Hx Para Spontaneous abortions HPI 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: Details: JOE OSBORNE is a [...] alert, oriented to person, oriented to place HENMT Head: normal to inspection Neck Neck: normal [...] 1 year, prn with problems Cheryl Sanchez [employer] Orders Orders: Medications New: Discontinued: desogestrel-ethinyl estradiol [...] Z11.3 12/23/17 1512 <Electronically signed by Cheryl [place]> Date Cheryl Sanchez SEMICOND[employer]CTOR PACK[employer] PLATEMAKER-C Cosigner Signature: Date (if applicable) CC: PAP I-G W/RFX Collected: 12/23/2017 Status: F Source: [place] HRHPV-APTIMA 3:00 PM [facility] REPOSITORY Order Comment: CYTOLOGY INFORMATION: - CLINICAL INFORMATION: - DATE LMP/MENOPAUSE: - COLLECTION VIAL: Thin Prep Vial - VICE PRESIDENT UNDERWRITING SOURCE: CERVICAL - COLLECTION TECHNIQUE: BRUSH/SPATULA Specimen Comment: [id number] Specimen Comment: Source.............Cervix Specimen Comment: No. of containers..01 ThinPrep Vial TYPE CODE TESTS RESULT OUT OF RANGE REFERENCE UNITS LAB L7400.0800 . Normal DIAGN Comment Result Comment: NEGATIVE FOR INTRAEPITHELIAL LESION AND MALIGNANCY. LAB L7400.0900 . Normal ADEQ Comment Result Comment: Satisfactory for evaluation. Endocervical and/or squamous metaplastic cells (endocervical component) are present. LAB L7400.1400 . Normal PERFORM Comment Result Comment: Amber Vargas, Stone [employer]ular Sawyer (ASCP) LAB L7400.2575 . Normal TEST METHOD [...] no HPV testing was performed. Performed at: - [facility] [id number] Equipment Records Supervisor: Judy Lagos MD, Phone: [phone] Performed By: #### L7400.0353 #### [facility] (refer to report for specific site) refer to report for address and phone number ALLERGIES ALLERGIES DATE TYPE / CODE NAME / CODE REACTION SEVERITY SOURCE 02/19/2018 Drug No Known Unknown [place] [facility] Allergy/4160 Allergies/F00 Hospital 72779(SNOMED 2619264(RXNOR Repository CT) M) ENCOUNTERS ENCOUNTERS ADMIT/DISCHARGE ACCOUNT ADMITTING ENCOUNTER LOCATION SOURCE NUMBER CLASS 02/20/2018/ [id number] Ambulatory [place] [address] [facility] ing:SDCRoom: Repository AC04 02/11/2018 [id number] Ambulatory [place] [facility] ing:LAB.FUTUR Repository E 02/09/2018 [id number] Ambulatory [place] [address] [facility] ing: Repository 01/26/2018 [id number] Ambulatory [place] [address] [facility] ing:LAB.FUTUR Repository E 12/23/2017 [id number] Ambulatory [place] [facility] ing:LABSPEC Repository 12/23/2017/ [id number] Ambulatory BMSBuilding:B [place] 8 3 [facility] Repository 06/02/2017 [id number] Ambulatory [place] [facility] ing:LAB.FUTUR Repository E PAYERS PAYERS ENCOUNTER GUARANTOR PAYER SUBSCRIBER SOURCE 02/20/2018 JOE A Primary JOE A [place] [id number] Insurance:MEDICAL SCOTTDOB: [facility] [id number] Number: Repository [address]Aji: 330 [id number] [phone] (HP) Date:2018-02-11[address] [place] [phone]: 02/20/2018 Secondary NOT GIVENUNK [place] Insurance:SELF PAY [facility] Number: Effective Repository Date:2018-02-11 02/11/2018 JOE A Primary JOE A [place] [id number] Insurance[place]MEDICAL [place] [facility] [place] [id number] [address] Number: Repository [id number]: 330 [id number] [phone] (HP) Date:2018-02-11[address] [phone]: 02/11/2018 Secondary NOT GIVENUNK [place] Insurance:SELF PAY [facility] Number: Effective Repository Date:2018-02-11 02/09/2018 JOE A Primary JOE A [place] [id number] Insurance:MEDICAL SCOT[place]OB[place] [facility] [place] [id number] [address] Number: Repository [address]Udg: 330 [id number] [phone] (HP) Date:2018-01-20[address] [place] [phone]: 02/09/2018 Secondary NOT GIVENUNK [place] Insurance:SELF PAY [facility] Number: Effective Repository Date:2018-01-20 01/26/2018 JOE A Primary JOE A [place] [id number] Insurance:MEDICAL SCOT[place]OB[place] [facility] [place] [id number] [address] Number: Repository [id number]: 330 [id number] [phone] (HP) Date:2018-01-26[address] [place] [phone]: 01/26/2018 Secondary NOT GIVENUNK [place] Insurance:SELF PAY [facility] Number: Effective Repository Date:2018-01-26 12/23/2017 JOE A Primary JOE A [place] [id number] Insurance:MEDICAL SCOTTDOB: [facility] [id number] [address] Number: Repository [address]Vqv: 330 [id number] [phone] (HP) Date:2017-12-23[address] [place] [phone]: 12/23/2017 Secondary NOT GIVENUNK [place] Insurance:SELF PAY [facility] Number: Effective Repository Date:2017-12-23 12/23/2017 JOE A Primary JOE A [place] [id number] Insurance:MEDICAL [place]OT[place]OB[place] [facility] [id number] Number: Repository [id number]: 330 [id number] [phone] (HP) Date:2017-12-15[address] [place] [phone]: 12/23/2017 Secondary NOT GIVENUNK [place] Insurance:SELF PAY [facility] Number: Effective Repository Date:2017-12-23 06/02/2017 JOE A Primary JOE A [place] [id number] Insurance:MEDICAL SCOTTDOB: [facility] [id number] [address] Number: Repository [id number]: (083) [id number] [phone] (HP) Date:2017-06-02[address] [place] [phone]: 06/02/2017 Secondary NOT GIVENUNK [place] Insurance:SELF PAY [facility] Number: Effective Repository Date:2017-06-02
== END 2018-02-20 17:55 | disposition home or self-care (01) ==
LOC: SDC 11:28 → AC 11:29
PROVIDERS: Family Provider Family Medicine; PCP Family Medicine; Referring Provider Otolaryngology; Visit Provider Otolaryngology
PROC: 07T10ZZ Resection of Right Neck Lymphatic, Open Approach (ICD-10-PCS; CPT 38724; principal; 2018-02-20 12:45)
DX: R59.0 Localized enlarged lymph nodes (principal); J35.01 Chronic tonsillitis; F32.9 Major depressive disorder, single episode, unspecified; F41.9 Anxiety disorder, unspecified; I10 Essential (primary) hypertension; Z79.899 Other long term (current) drug therapy
CPT/HCPCS: 38510; 81025; 88305; J7120; J2405

== ENCOUNTER → 2018-06-03 11:31 | Outpatient (CLI) | payer OTHER, SELFPAY ==
[2018-06-03 16:14] LABS: Vitamin D,25 Hydroxy 18.4 ng/mL (29.95-100.01)
[2018-06-12 06:09] LABS: Immunoglobulin A 387 mg/dL (87-352); Immunoglobulin G 1089 mg/dL (700-1600); Immunoglobulin M 75 mg/dL (26-217)
[2018-06-12 12:24] LABS: Immunoglobulin E 77 IU/mL (6-495)
== END ==
PROVIDERS: Family Provider Family Medicine; PCP Family Medicine; Visit Provider Family Medicine
DX: J06.9 Acute upper respiratory infection, unspecified (principal); J01.90 Acute sinusitis, unspecified; E55.9 Vitamin D deficiency, unspecified; R68.89 Other general symptoms and signs
CPT/HCPCS: 82306; 82784; 82785; 87070; 87205; 87633

== ENCOUNTER → 2018-10-28 11:27 | Outpatient (CLI) | payer OTHER, SELFPAY | PROVIDERS: Family Provider Family Medicine; PCP Family Medicine; Visit Provider Family Medicine | DX: J03.90 Acute tonsillitis, unspecified (principal) | CPT/HCPCS: 87070 ==

== ENCOUNTER → 2021-09-19 | Outpatient (CLI) | payer OTHER, SELFPAY ==
--- NOTE | 2021-09-19 10:10 | RAD_ITS ---
STUDY: X-RAY - RIGHT KNEE REASON FOR EXAM: Female, 26 years old. Knee pain. TECHNIQUE: 4 view(s) of the knee. COMPARISON: None. FINDINGS: Normal visualized distal femur. Normal visualized proximal tibia and fibula. Normal proximal tibiofibular articulation. There is mild degenerative arthrosis of the medial femorotibial compartment. Normal lateral femorotibial compartment. Slight lateral tilt and subluxation of the patella with narrowing of the lateral patellofemoral compartment. The soft tissue structures are unremarkable. 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 Electronically Signed: Jose F Zavala MD at 12:17 EDT ,
[2021-09-19 12:21] LABS: Absolute Lymphocyte Count 2.75 X10^3/uL (0.83-4.51); Absolute Neutrophil Count 2.2 X10^3/uL (2.0-7.7); Basophil# 0.03 X10^3/uL; Basophil% 0.5 % (0-1); Eosinophil# 0.22 X10^3/uL; Eosinophils% 3.8 % (0-5); Hematocrit 40.9 % (37-47); Hemoglobin 13.4 g/dL (12.0-15.0); Lymphocyte # 2.75 X10^3/ul (0.83-4.51); Lymphocyte % 47.7 % (19-41); Mean Corp Hgb Conc 32.8 g/dL (32-36); Mean Corpuscular Hgb 29.1 pg (27.0-32.0); Mean Corpuscular Volume 88.7 fL (81-99); Monocyte# 0.52 X10^3/uL; NRBC Flagged by Analyzer 0 % (0-5); Neutrophil # 2.24 X10^3/uL (2.7-7.7); Neutrophil % 38.8 % (47-70); Platelet Count 269 K/mm3 (150-450); RBC Distribution Width CV 13.1 % (11.6-14.6); RBC Distribution Width SD 42.8 fl (35.1-43.9); Red Blood Count 4.61 M/mm3 (4.2-5.4); White Blood Count 5.8 K/mm3 (4.4-11.0)
[2021-09-19 12:55] LABS: Vitamin D,25 Hydroxy 39.4 ng/mL
[2021-09-19 13:18] LABS: ALB/GLOB Ratio 0.8 RATIO (0.9-2.4); AST(SGOT) 17 U/L (15-37); Alanine Aminotransfer ALT/SGPT 16 U/L (13-56); Albumin, Serum 3.2 g/dL (3.2-5.0); Alkaline Phosphatase 45 U/L (45-117); Anion Gap 5 (5-15); BUN 14 mg/dL (7-18); BUN/Creat Ratio 19.3 RATIO (10-20); Chloride 104 mmol/L (98-107); Cholesterol 173 mg/dL (200); Creatinine, Serum 0.72 mg/dL (0.55-1.02); EST Glomerular Filtration Rate 102 mL/min (>60); Est Glom Filt Rate - Afr Amer 123 mL/min (>60); Free T3 2.7 pg/mL (2.18-3.98); Globulin 4.2 g/dL (2.2-4.2); Glucose 69 mg/dL (74-106); High Density Lipoprotein 76 mg/dL; Protein, Total 7.4 g/dL (6.4-8.2); Sodium Level 137 mmol/L (136-145); T4 Free Direct 1.09 ng/dL (0.76-1.46); Thyroid Stim Hormone (TSH) 0.98 uIU/mL (0.358-3.74); Triglycerides 94 mg/dL; Very Low Density Lipoprotein 19 mg/dL (5-40)
== END | disposition home or self-care (01) ==
PROVIDERS: PCP Family Medicine; Referring Provider Family Medicine; Visit Provider Family Medicine
DX: Z00.00 Encounter for general adult medical examination without abnormal findings (principal); E03.9 Hypothyroidism, unspecified; M25.561 Pain in right knee; E55.9 Vitamin D deficiency, unspecified; Z51.81 Encounter for therapeutic drug level monitoring
CPT/HCPCS: 36415; 73564; 80053; 80061; 82306; 84439; 84443; 84481; 85025